=== PATIENT | female | born 1970 | race Caucasian/White ===

== ENCOUNTER 2018-10-19 06:44 | Day surgery (SDC) | payer OTHER ==
[2018-10-18 10:14] VITALS: BMI 30.7
[2018-10-19] MEDS ORDERED: Lactated Ringer's 500 ML IV ONE (08:01)
[2018-10-19] MEDS ORDERED: Propofol 10 mg/ml Inj (20 ML) ONE ×2 (08:01→08:18)
[2018-10-19 10:41] VITALS: BP 117/82; PULSE 64; RESP 16; TEMP 97.4; O2SAT 100
== END 2018-10-19 10:00 | disposition home or self-care (01) ==
LOC: C.ENDO 06:44
PROVIDERS: ATTEND Internal Medicine Gastroenterology
DX: K21.0 Gastro-esophageal reflux disease with esophagitis (principal); K29.50 Unspecified chronic gastritis without bleeding
CPT/HCPCS: 43239; 88305; J2001; J2704; J7120